=== PATIENT | female | born 1970 | race Caucasian/White ===

== ENCOUNTER → 2019-04-21 | Outpatient (CLI) | payer BC ==
--- NOTE | 2019-04-21 11:11 | XR ---
EXAMINATION TYPE: XR chest 2V DATE OF EXAM: 04/21/2019 COMPARISON: NONE HISTORY: Shortness of breath and fatigue for 3 weeks. TECHNIQUE: Frontal and lateral views of the chest are obtained. FINDINGS: Slight pectus excavatum deformity on lateral view. There is no focal air space opacity, pl eural effusion, or pneumothorax seen. The cardiac silhouette size is within normal limits. The oss eous structures are intact. IMPRESSION: No acute cardiopulmonary process.
== END | disposition home or self-care (01) ==
LOC: RADXRYALE 10:51
PROVIDERS: ATTEND Physician Assistant
DX: R06.02 Shortness of breath (principal)
CPT/HCPCS: 71046

== ENCOUNTER 2019-05-30 16:45 | Emergency (ER) | payer BC, OTHER ==
[2019-05-30 17:13] VITALS: BP 119/64; PULSE 60; RESP 18; TEMP 97.4
[2019-05-30] MEDS ORDERED: DIPH,PERTUS(ACELL)TETVAC-LF 0.5 ML VIAL IM ONE (18:00)
--- NOTE | 2019-05-30 18:00 | ED ---
General Adult HPI - General Chief complaint: Needlestick/Exposure Stated complaint: [facility] needle exposure Time Seen by Provider: 05/30/19 17:01 Source: patient Mode of arrival: ambulatory Limitations: no limitations - History of Present Illness Initial comments: 48-year-old female patient presents to the emergency department today for evaluation after being stuck by a needle at work. Patient states she works at [employer]. 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 Patient states this was used for heroin administration. The source does have known hepatitis C. He is unaware of any other infectious or communicable diseases. She states that she did cleanse the area immediately and washed for 15 minutes with soap and water. Patient denies any other injuries or concerns. She is unsure when her last tetanus vaccine was administered. States that she is up-to-date on her hepati tis B and hepatitis A vaccines. She denies any other symptoms or concerns. - Related Data Home Medications Medication Instructions Recorded Confirmed Cyanocobalamin (Vitamin B-12) 1,000 mcg PO BID PRN 12/09/17 12/09/17 [Vitamin B-12] Garlic 1 tab PO DAILY 12/09/17 12/09/17 Zinc 50 mg PO TID PRN 12/09/17 12/09/17 Allergies Allergy/AdvReac Type Severity Reaction Status Date / Time nitrofurantoin Allergy Rash/Hives Verified 12/09/17 14:03 [From Macrobid] Review of Systems ROS Statement: Those systems with pertinent positive or pertinent negative responses have been documented in the HPI. ROS Other: All systems not noted in ROS Statement are negative. Past Medical History Past Medical History: No Reported History History of Any Multi-Drug Resistant Organisms: None Reported Past Surgical History: No Surgical Hx Reported Past Psychological History: No Psychological Hx Reported Smoking Status: Former smoker Past Alcohol Use History: None Reported Past Drug Use History: None Reported General Exam Limitations: no limitations General appearance: alert, in no apparent distress, other (So well-developed, well-nourished adult female patient in no acute distress. Vital signs upon pre sentation are temperature 97.4F, pulse 60, respirations 18, blood pressure 119/64, pulse ox 100% on room air.) Respiratory exam: Present: normal lung sounds bilaterally. Absent: respiratory distress, wheezes, rales, rhonchi, stridor Cardiovascular Exam: Present: regular rate, normal rhythm, normal heart sounds. Absent: systolic murmur, diastolic murmur, rubs, gallop, clicks Neurological exam: Present: alert, oriented X3, CN II-XII intact Psychiatric exam: Present: normal affect, normal mood Skin exam: Present: warm, dry, intact, normal color. Absent: rash Course Vital Signs 05/30/19 17:09 Temperature 97.4 F L Pulse Rate 60 Respiratory 18 Rate Blood Pressure 119/64 O2 Sat by Pulse 100 Oximetry Medical Decision Making - Medical Decision Making 48-year-old female patient presents to the emergency department today for evaluation after being stuck by a contaminated needle at work. Source is known hep c positive. We did send patient labs and source labs. Rapid HIV was negative. I did inform patient of this finding. She will be discharged to follow up with employee health for further testing and evaluation. She verbalizes understanding and agrees with this plan. Disposition Clinical Impression: Needlestick injury accident with exposure to body fluid Disposition: HOME SELF-CARE Condition: Good Instructions (If sedation given, give patient instructions): Body Substance Exposure (ED) Additional Instructions: Follow-up with employee health services as directed. Follow-up through primary care physician for recheck in 1-2 days. Return to the emergency department immediately for any new, worsening, or concerning symptoms. Is patient prescribed a controlled substance at d/c from ED?: No Referrals: Pato Duffy DO [Primary Care Provider] - 1-2 days Time of Disposition: 18:55
[2019-05-31 01:29] LABS: HIV 1 AB Non-Reactive (Non-Reactive); HIV 2 AB Non-Reactive (Non-Reactive); HIV AB P24 Non-Reactive (Non-Reactive); HIV P24 AG Non-Reactive (Non-Reactive); Hepatitis B Surface AB- Quant 91.2 mIU/mL; Hepatitis B Surface Antibody Reactive (Non-Reactive); Hepatitis C IgG Antibody Non-Reactive (Non-Reactive)
== END 2019-05-30 19:14 | disposition home or self-care (01) ==
LOC: EC 16:45
DX: Z77.21 Contact with and (suspected) exposure to potentially hazardous body fluids (principal); Z23 Encounter for immunization; Z88.1 Allergy status to other antibiotic agents; Z87.891 Personal history of nicotine dependence; W46.0XXA Contact with hypodermic needle, initial encounter; Y92.69 Other specified industrial and construction area as the place of occurrence of the external cause; Y99.0 Civilian activity done for income or pay
CPT/HCPCS: 86706; 86803; 87390; 90471; 90715; 99283

== ENCOUNTER → 2019-05-30 | Outpatient (CLI) | payer BC | END | disposition home or self-care (01) | LOC: LABWHC1 16:11 | DX: Z53.9 Procedure and treatment not carried out, unspecified reason (principal) ==